=== PATIENT | male | born 2005 | race Two or more races ===

== ENCOUNTER 2024-06-25 19:43 | Emergency (ER) | payer SELFPAY | END 2024-06-25 21:13 | disposition left against medical advice (07) | LOC: ER 19:43 | DX: M79.18 Myalgia, other site (principal); Z53.21 Procedure and treatment not carried out due to patient leaving prior to being seen by health care provider ==

== ENCOUNTER 2024-08-08 05:55 | Emergency (ER) | payer MEDICAID, OTHER ==
[~2024-08-08] VITALS: Ht 182.9 cm; Wt 89.5 kg
[2024-08-08 06:30] VITALS: PULSE 74; RESP 18; O2SAT 98
--- NOTE | 2024-08-08 06:43 | ED.PDOC ---
Musculoskeletal HPI Comments 18 year old male presents to the ED with a chief complaint of LT shoulder pain onset today (08/08/24). Patient states he was getting off his truck when he slipped, fell and landed on LT shoulder, patient heard a "pop." He is currently experiencing LT shoulder pain, is not able to move LT shoulder. Denies any PMHx as well as LOC, head injury, nausea, vomiting, headache, chest pain, shortness of breath. No other symptoms or modifying factors present at this time. Chief Complaint: Upper Extremity Time Seen by MD: 06:34 Primary Care Provider: NONE Reviewed Notes: Medications, Allergies Allergies: Coded Allergies: NO KNOWN ALLERGIES (Unverified , 08/08/24) Information Source: Patient Mode of Arrival: Ambulatory Location: Left Extremity Location: Shoulder Timing: Hours Prehospital treatment: None Severity: Moderate Able to Move Extremity: No Pain: Moderate Hand Dominance: Right Mechanism: Spontaneous Circumstances: Fall Onset of Symptoms: After Trauma Symptoms: Pain DVT Risk Factors: NONE Associated signs and symptoms: Shoulder pain Past Medical History PAST MEDICAL HISTORY: Denies Surgical History: Denies all surgeries Family History Family History: Reviewed,noncontributory to illness, No family hx of Cancer, No family hx of DM, No family hx of Heart shirin, No family hx of HTN, No family hx ofKidney shirin, No family hx of Liver shirin, No family hx of Lung shirin, No family hx of Stroke Social History Smoker: Non-Smoker Alcohol: Denies ETOH Use Drugs: Denies Drug Use Lives In: Home Constitutional: denies: chills, diaphoresis, fatigue, fever, malaise, sweats, weakness, others EENTM: denies: blurred vision, double vision, ear bleeding, ear discharge, ear drainage, ear pain, ear ringing, eye pain, eye redness, hearing loss, mouth pain, mouth swelling, nasal discharge, nose bleeding, nose congestion, nose pain, photophobia, tearing, throat pain, throat swelling, voice changes, others Respiratory: denies: cough, hemoptysis, orthopnea, SOB at rest, shortness of breath, SOB with excertion, stridor, wheezing, others Cardiovascular: denies: chest pain, dizzy spells, diaphoresis, Dyspnea on exertion, edema, irregular heart beat, left arm pain, lightheadedness, palpitations, PND, syncope, others Gastrointestinal: denies: abdomen distended, abdominal pain, blood streaked bowels, constipated, diarrhea, dysphagia, difficulty swallowing, hematemesis, melena, nausea, poor appetite, poor fluid intake, rectal bleeding, rectal pain, vomiting, others Genitourinary: denies: burning, dysuria, flank pain, frequency, hematuria, incontinence, penile discharge, penile sore, pain, testicle pain, testicle swelling, urgency, others Neurological: denies: dizziness, fainting, headache, left sided numbness, left sided weakness, numbness, paresthesia, pre-existing deficit, right sided numbness, right sided weakness, seizure, speech problems, tingling, tremors, weakness, others Musculoskeletal: reports: others (LT shoulder pain); denies: back pain, gout, joint pain, joint swelling, muscle pain, muscle stiffness, neck pain Integumetry: denies: bruises, change in color, change in hair/nails, dryness, laceration, lesions, lumps, rash, wounds, others Allergic/Immunocompromised: denies: Difficulty Healing, Frequent Infections, Hives, Itching, others Hematologic/Lymphatic: denies: anemia, blood clots, easy bleeding, easy bruising, swollen glands, others Endocrine: denies: excessive hunger, excessive sweating, excessive thirst, excessive urination, flushing, intolerance to cold, intolerance to heat, unexplained weight gain, unexplained weight loss, others Psychiatric: denies: anxiety, bipolar disorder, depression, hopeless, panic disorder, schizophrenia, sleepless, suicidal, others All Other Systems: Reviewed and Negative Physical Exam General Appearance: No Apparent Distress, Normal HEENT: Normal ENT Inspection, Pharynx Normal, TMs Normal Neck: Full Range of Motion, Non-Tender, Normal, Normal Inspection Respiratory: Chest Non-Tender, Lungs Clear, No Accessory Muscle Use, No Respiratory Distress, Normal Breath Sounds Cardiovascular: No Edema, No JVD, No Murmur, No Gallop, Normal Peripheral Pulses, Regular Rate/Rhythm Breast Exam: Deferred Gastrointestinal: No Organomegaly, Non Tender, No Pulsatile Mass, Normal Bowel Sounds, Soft Genitalia: Deferred Pelvic: Deferred Rectal: Deferred Extremities: No calf tenderness, No pedal edema, Other (deformity noted to LT shoulder) Musculoskeletal : Apperance: Normal Neurologic: Alert, 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 Was a procedure done?: Yes Sedation Sedation?: Yes Informed consent obtained: Yes Sedation start time: 07:55 Sedation end time: 08:30 Sedation total time: 35 Reduction Indication: Dislocation (Left Shoulder) Sedation: Consents obtained, Sedation as ordered Intra-articular anesthetic sterling: No Post-reduction x-ray show: Reduction, Good Alignment Informed consent obtained: Yes Risks/benefits/alt described: Yes Differential Diagnosis EXT Differential Diagnosis: Sprain, Dislocation, Strain X-Ray, Labs, Meds, VS Vital Signs Date Time Temp Pulse Resp B/P (MAP) Pulse Ox O2 Delivery O2 Flow Rate FiO2 08/08/24 08:16 50 19 99 2.0 28 79 18 100 85 99 08/08/24 06:58 94 18 133/68 08/08/24 06:30 98.1 74 18 129/60 (83) 98 98.1 08/08/24 06:30 74 18 98 Room Air* 0 21 08/08/24 06:11 99.1 97 20 114/66 (82) 96 99.1 Current Medications Medications (Trade) Dose Ordered Sig/Joe Route Start Time Stop Time Status Last Admin Sodium Chloride 1,000 ml @ 1,000 mls/hr Q1H ONCE IV 08/08/24 06:45 08/08/24 07:44 DC 08/08/24 06:59 Morphine Sulfate 4 mg ONCE ONCE IV 08/08/24 06:45 08/08/24 06:46 DC 08/08/24 06:58 Ondansetron HCl (Zofran) 4 mg ONCE ONCE IV 08/08/24 06:45 08/08/24 06:46 DC 08/08/24 06:58 Ketorolac Tromethamine (Toradol Injection) 15 mg ONCE ONCE IV 08/08/24 06:45 08/08/24 06:46 DC 08/08/24 06:57 Propofol (Diprivan) 100 mg ONCE ONCE IV 08/08/24 07:30 08/08/24 07:31 DC 08/08/24 07:[address] [address] Ph: [phone] DIAGNOSTIC IMAGING Diagnostic Imaging Report : [id number] Signed PATIENT: DEVANG BECKWITH ACCT: [id number] UNIT: [id number] : 2005 LOC: ER ROOM / BED: / AGE / SEX: 18 / M ADM STATUS: REG ER SERVICE 0634 ORDERING PHYSICIAN: CECILE BATISTA MD PROCEDURE(s): LSHD2 - L SHOULDER 2+ VIEW XRAY REASON: fall ORDER NUMBER(s): [id number], ACCESSION NUMBER(s): [id number] CLINICAL INFORMATION: 18 years old, Male; fall injury. TECHNIQUE: To views of the left shoulder were obtained. COMPARISON: None FINDINGS: Anterior subcoracoid left glenohumeral dislocation. No acute fracture visualized. Mild adjacent soft tissue swelling. IMPRESSION: Anterior subcoracoid left glenohumeral dislocation. ATED BY: ARTURO FREITAS DO DICTATED DATE/TIME: 08/08/24716 SIGNED BY: ARTURO FREITAS DO SIGNED DATE/TIME: 08/08/24716 CC: [place] [id number] Ph: [phone] DIAGNOSTIC IMAGING Diagnostic Imaging Report : [id number] Signed PATIENT: DEVANG BECKWITH ACCT: [id number] UNIT: [id number] : 2005 LOC: ER ROOM / BED: / AGE / SEX: 18 / M ADM STATUS: REG ER SERVICE 0757 ORDERING PHYSICIAN: CECILE BATISTA MD PROCEDURE(s): LSHD - L SHOULDER 1V XRAY REASON: s/p reduction ORDER NUMBER(s): [id number], ACCESSION NUMBER(s): [id number] CLINICAL INDICATION: s/p reduction TECHNIQUE: 2 radiographic views of the left shoulder were obtained. Comparison: XY L SHOULDER 2+ VIEW XRAY on DOS: 08/08/24 FINDINGS/IMPRESSION: Interval reduction of previously seen shoulder dislocation with improved alignment. Possible hill-Sachs deformity. ATED BY: ZAC MONREAL MD DICTATED DATE/TIME: 08/08/24847 SIGNED BY: ZAC MONREAL MD SIGNED DATE/TIME: 08/08/24847 CC: Time of 1ST Reevaluation: 07:04 Reevaluation 1ST: Unchanged Patient Education/Counseling: Diagnosis, Treatment, Prognosis Family Education/Counseling: No Family Present Additional Information The following tests were ordered, and results were reviewed by me: XY L SHOULDER 2+ VIEW, XY L SHOULDER 1V I reviewed and agreed with the following test results read by other providers: XY L SHOULDER 2+ VIEW, XY L SHOULDER 1V I discussed treatment and results with medical personnel and: patient Comprehensive systems review obtained and negative except for what is stated in the HPI. Departure 1 Departure Time of Disposition: 08:54 (Patient had a left shoulder dislocation. Patient's shoulder was reduced. We will discharge patient home with outpatient follow up) Impression: Primary Impression: Dislocation of left shoulder joint Qualified Codes: S43.005A - Unspecified dislocation of left shoulder joint, initial encounter Disposition: 01 HOME / SELF CARE / HOMELESS Condition: Stable Referrals: AMA PEARL MD Additional Instructions: You dislocated your shoulder. It was reduced in the ER. You were placed in a sling for comfort. For pain you can take the followinam: Ibuprofen 400mg with food Noon: Acetaminophen 1000mg 4pm: Ibuprofen 400mg with food 8pm: Acetaminophen 1000mg You were referred to an orthopedic surgeon to ensure you are healing well. Please call for an appointment within one week. If your symptoms worsen or you have any other concerns then please return to the ER. Discharged With: Self Critical Care Note Critical Care Time?: No Stability Stability form required: No I personally scribed for CECILE BATISTA MD ([email or web address]) on 08/08/24 at 06:43. Electronically submitted by Cici Krasu ([email or web address]). I personally scribed for CECILE BATISTA MD ([email or web address]) on 08/08/24 at 06:50. Electronically submitted by Cici Kraus ([email or web address]). I personally scribed for CECILE BATISTA MD ([email or web address]) on 08/08/24 at 08:19. Electronically submitted by Cici Kraus ([email or web address]). I personally scribed for CECILE BATISTA MD ([email or web address]) on 08/08/24 at 08:20. Electronically submitted by Cici Kraus ([email or web address]). I personally scribed for CECILE BATISTA MD ([email or web address]) on 08/08/24 at 08:54. Electronically submitted by Cici Kraus ([email or web address]). CECILE BATISTA MD August 08, 2024 06:43
[2024-08-08] MEDS: KETOROLAC TROMETH 30 MG/ML 1ML VIAL IV ONE (06:57)
[2024-08-08] MEDS: MORPHINE SULFATE 4 MG/ML SYR/VIAL IV ONE (06:58)
[2024-08-08] MEDS: ONDANSETRON HCL 4 MG/2 ML VIAL IV ONE (06:58)
[2024-08-08] MEDS: SODIUM CHLORIDE 0.9% 1,000 ML IV ONE (06:59)
--- NOTE | 2024-08-08 07:19 | DVH ---
CLINICAL INFORMATION: 18 years old, Male; fall injury. TECHNIQUE: To views of the left shoulder were obtained. COMPARISON: None FINDINGS: Anterior subcoracoid left glenohumeral dislocation. No acute fracture visualized. Mild ad jacent soft tissue swelling. IMPRESSION: Anterior subcoracoid left glenohumeral dislocation.
[2024-08-08] MEDS: PROPOFOL 10 MG/ML 20 ML IV ONE (07:55)
[2024-08-08 08:00] VITALS: TEMP 98.3
--- NOTE | 2024-08-08 08:50 | DVH ---
CLINICAL INDICATION: s/p reduction TECHNIQUE: 2 radiographic views of the left shoulder were obtained. Comparison: XY L SHOULDER 2+ VIEW XRAY on DOS: 08/08/24 FINDINGS/IMPRESSION: Interval reduction of previously seen shoulder dislocation with improved alignment. Possible hill-Sa chs deformity.
[2024-08-08 09:02] VITALS: PULSE 56; RESP 16; O2SAT 97
[2024-08-08 10:00] VITALS: BP 103/60; PULSE 111; RESP 18; O2SAT 97
== END 2024-08-08 10:52 | disposition home or self-care (01) ==
LOC: ER 05:55
DX: S43.085A Other dislocation of left shoulder joint, initial encounter (principal); W18.39XA Other fall on same level, initial encounter; Y93.89 Activity, other specified; Y92.89 Other specified places as the place of occurrence of the external cause; Y99.8 Other external cause status
CPT/HCPCS: 23650; 73020; 73030; 96361; 96374; 96375; 99152; 99153; 99285; J1885; J2270; J2405; J2704; J7030

== ENCOUNTER 2024-08-08 11:02 | Emergency (ER) | payer MEDICAID ==
[~2024-08-08] VITALS: Ht 182.9 cm; Wt 89.5 kg
--- NOTE | 2024-08-08 11:15 | ED.PDOC ---
Musculoskeletal HPI Comments 18 year old male presents to the ED with a chief complaint of LT shoulder pain onset today (08/08/24). Patient was seen in this ED earlier today, due to shoulder dislocation. Patient was placed on a sling and was discharged from this ED today 08/08/24 at 10:37. Patient states he took off sling, tried to put his jacket on when he felt Lt shoulder "pop" again. No other symptoms or modifying factors present at this time. Time Seen by MD: 11:02 Primary Care Provider: NONE Reviewed Notes: Medications, Allergies Allergies: Coded Allergies: NO KNOWN ALLERGIES (Unverified , 08/08/24) Information Source: Patient Mode of Arrival: Ambulatory Location: Left Extremity Location: Shoulder Timing: Minutes Prehospital treatment: None Severity: Moderate Able to Move Extremity: No Pain: Moderate Mechanism: Spontaneous Symptoms: Pain DVT Risk Factors: NONE History of: Shoulder Dislocation Associated signs and symptoms: Shoulder pain Past Medical History PAST MEDICAL HISTORY: Denies Surgical History: Denies all surgeries Family History Family History: Reviewed,noncontributory to illness, No family hx of Cancer, No family hx of DM, No family hx of Heart shirin, No family hx of HTN, No family hx ofKidney shirin, No family hx of Liver shirin, No family hx of Lung shirin, No family hx of Stroke Social History Smoker: Non-Smoker Alcohol: Denies ETOH Use Drugs: Denies Drug Use Lives In: Home Constitutional: denies: chills, diaphoresis, fatigue, fever, malaise, sweats, weakness, others EENTM: denies: blurred vision, double vision, ear bleeding, ear discharge, ear drainage, ear pain, ear ringing, eye pain, eye redness, hearing loss, mouth pain, mouth swelling, nasal discharge, nose bleeding, nose congestion, nose pain, photophobia, tearing, throat pain, throat swelling, voice changes, others Respiratory: denies: cough, hemoptysis, orthopnea, SOB at rest, shortness of breath, SOB with excertion, stridor, wheezing, others Cardiovascular: denies: chest pain, dizzy spells, diaphoresis, Dyspnea on exertion, edema, irregular heart beat, left arm pain, lightheadedness, palpitations, PND, syncope, others Gastrointestinal: denies: abdomen distended, abdominal pain, blood streaked bowels, constipated, diarrhea, dysphagia, difficulty swallowing, hematemesis, melena, nausea, poor appetite, poor fluid intake, rectal bleeding, rectal pain, vomiting, others Genitourinary: denies: burning, dysuria, flank pain, frequency, hematuria, incontinence, penile discharge, penile sore, pain, testicle pain, testicle swelling, urgency, others Neurological: denies: dizziness, fainting, headache, left sided numbness, left sided weakness, numbness, paresthesia, pre-existing deficit, right sided numbness, right sided weakness, seizure, speech problems, tingling, tremors, weakness, others Musculoskeletal: reports: others (LT shoulder pain); denies: back pain, gout, joint pain, joint swelling, muscle pain, muscle stiffness, neck pain Integumetry: denies: bruises, change in color, change in hair/nails, dryness, laceration, lesions, lumps, rash, wounds, others Allergic/Immunocompromised: denies: Difficulty Healing, Frequent Infections, Hives, Itching, others Hematologic/Lymphatic: denies: anemia, blood clots, easy bleeding, easy bruising, swollen glands, others Endocrine: denies: excessive hunger, excessive sweating, excessive thirst, excessive urination, flushing, intolerance to cold, intolerance to heat, unexplained weight gain, unexplained weight loss, others Psychiatric: denies: anxiety, bipolar disorder, depression, hopeless, panic disorder, schizophrenia, sleepless, suicidal, others All Other Systems: Reviewed and Negative Physical Exam General Appearance: No Apparent Distress, Normal HEENT: Normal ENT Inspection, Pharynx Normal, TMs Normal Neck: Full Range of Motion, Non-Tender, Normal, Normal Inspection Respiratory: Chest Non-Tender, Lungs Clear, No Accessory Muscle Use, No Respiratory Distress, Normal Breath Sounds Cardiovascular: No Edema, No JVD, No Murmur, No Gallop, Normal Peripheral Pulses, Regular Rate/Rhythm Breast Exam: Deferred Gastrointestinal: No Organomegaly, Non Tender, No Pulsatile Mass, Normal Bowel Sounds, Soft Genitalia: Deferred Pelvic: Deferred Rectal: Deferred Extremities: No calf tenderness, No pedal edema, Other (deformity to LT shoulder ) Musculoskeletal : Apperance: Normal Neurologic: Alert, 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 Was a procedure done?: Yes Sedation Sedation?: Yes Informed consent obtained: Yes Sedation start time: 13:09 Sedation end time: 13:40 Sedation total time: 31min Reduction Indication: Dislocation (left shoulder dislocation) Sedation: Consents obtained Intra-articular anesthetic sterling: No Post-reduction x-ray show: Reduction, Good Alignment Informed consent obtained: Yes Risks/benefits/alt described: Yes Differential Diagnosis EXT Differential Diagnosis: Fracture, Sprain, Dislocation X-Ray, Labs, Meds, VS Vital Signs Date Time Temp Pulse Resp B/P (MAP) Pulse Ox O2 Delivery O2 Flow Rate FiO2 08/08/24 13:08 77 16 137/81 (99) 98 08/08/24 12:51 52 16 126/82 08/08/24 12:00 97.7 50 17 126/82 (97) 97.7 08/08/24 11:30 50 20 96 Room Air* 0 21 08/08/24 11:30 51 14 129/79 (96) 96 08/08/24 11:11 98.0 70 17 119/72 (88) 100 98.0 Current Medications Medications (Trade) Dose Ordered Sig/Joe Route Start Time Stop Time Status Last Admin Sodium Chloride 1,000 ml @ 1,000 mls/hr Q1H ONCE IV 08/08/24 12:15 08/08/24 13:14 DC 08/08/24 12:51 Ondansetron HCl (Zofran) 4 mg ONCE ONCE IV 08/08/24 12:15 08/08/24 12:41 DC 08/08/24 12:51 Morphine Sulfate 4 mg ONCE ONCE IV 08/08/24 12:15 08/08/24 12:41 DC 08/08/24 12:51 Propofol (Diprivan) 200 mg ONCE ONCE IV 08/08/24 12:15 08/08/24 12:41 DC 08/08/24 13:[address] [address] Ph: [phone] DIAGNOSTIC IMAGING Diagnostic Imaging Report : [id number] Signed PATIENT: DEVANG BECKWITH ACCT: [id number] UNIT: [id number] : 2005 LOC: ER ROOM / BED: / AGE / SEX: 18 / M ADM STATUS: REG ER SERVICE 1104 ORDERING PHYSICIAN: CECILE BATISTA MD PROCEDURE(s): LSHD2 - L SHOULDER 2+ VIEW XRAY REASON: patient removed sling and raised arm and redislocated should ORDER NUMBER(s): [id number], ACCESSION NUMBER(s): [id number] XY L SHOULDER 2+ VIEW XRAY INDICATION: patient removed sling and raised arm and redislocated should TECHNICAL DATA: 2 views were obtained of the left shoulder. COMPARISON: XY L SHOULDER 1V XRAY on DOS: 08/08/24, XY L SHOULDER 2+ VIEW XRAY on DOS: 08/08/24 FINDINGS: Anterior/inferior left shoulder dislocation. The acromioclavicular joint appears normal. The humeral head is not high riding. Adjacent soft tissues are within normal limits. IMPRESSION: Anterior/inferior left shoulder dislocation. ATED BY: JOSELUIS SAM MD DICTATED DATE/TIME: 08/08/24 115 SIGNED BY: JOSELUIS SAM MD SIGNED DATE/TIME: 08/08/24 115 CC: [place] [id number] Ph: [phone] DIAGNOSTIC IMAGING Diagnostic Imaging Report : [id number] Signed PATIENT: DEVANG BECKWITH ACCT: [id number] UNIT: [id number] : 2005 LOC: ER ROOM / BED: / AGE / SEX: 18 / M ADM STATUS: REG ER SERVICE 1310 ORDERING PHYSICIAN: CECILE BATISTA MD PROCEDURE(s): LSHD - L SHOULDER 1V XRAY REASON: s/p reduction ORDER NUMBER(s): [id number], ACCESSION NUMBER(s): [id number] CLINICAL INDICATION: s/p reduction TECHNIQUE: XY L SHOULDER 1V XRAY Comparison: XY L SHOULDER 2+ VIEW XRAY on DOS: 08/08/24, XY L SHOULDER 1V XRAY on DOS: 08/08/24, XY L SHOULDER 2+ VIEW XRAY on DOS: 08/08/24 FINDINGS/IMPRESSION: : No joint dislocation. Subcentimeter ossific density at the inferior margin of the glenoid is suspicious for bony Bankart avulsion fracture. ATED BY: YOVANY REICH MD DICTATED DATE/TIME: 08/08/24 133 SIGNED BY: YOVANY REICH MD SIGNED DATE/TIME: 08/08/24 133 CC: Time of 1ST Reevaluation: 11:32 Reevaluation 1ST: Unchanged Patient Education/Counseling: Diagnosis, Treatment, Prognosis Family Education/Counseling: No Family Present Additional Information The following tests were ordered, and results were reviewed by me: XY L SHOULDER 2+ VIEW, XY SHOULDER 1 VIEW I reviewed and agreed with the following test results read by other providers: XY L SHOULDER 2+ VIEW, XY SHOULDER 1 VIEW I discussed treatment and results with medical personnel and: patient Comprehensive systems review obtained and negative except for what is stated in the HPI. Departure 1 Departure Time of Disposition: 13:50 (Patient's shoulder was reduced again. Patient was placed in a sling counseled on the importance of keeping his arm where it is. Patient will follow up with outpatient follow up) Impression: Primary Impression: Dislocation of left shoulder joint Qualified Codes: S43.005A - Unspecified dislocation of left shoulder joint, initial encounter Disposition: HOME / SELF CARE / HOMELESS Condition: Stable Referrals: AMA PEARL MD Additional Instructions: You dislocated your shoulder. It was reduced in the ER. You were placed in a sling for comfort. For pain you can take the followinam: Ibuprofen 400mg with food Noon: Acetaminophen 1000mg 4pm: Ibuprofen 400mg with food 8pm: Acetaminophen 1000mg You were referred to an orthopedic surgeon to ensure you are healing well. Please call for an appointment within one week. If your symptoms worsen or you have any other concerns then please return to the ER. Discharged With: Self Critical Care Note Critical Care Time?: No Stability Stability form required: No I personally scribed for CECILE BATISTA MD ([email or web address]) on 08/08/24 at 11:15. Electronically submitted by Cici Kraus ([email or web address]). I personally scribed for CECILE BATISTA MD ([email or web address]) on 08/08/24 at 11:20. Electronically submitted by Cici Kraus ([email or web address]). I personally scribed for CECILE BATISTA MD ([facility]) on 08/08/24 at 12:09. Electronically submitted by Cici Kraus ([email or web address]). I personally scribed for CECILE BATISTA MD ([email or web address]) on 08/08/24 at 13:45. Electronically submitted by Cici Kraus ([email or web address]). CECILE BATISTA MD August 08, 2024 11:15
[2024-08-08 11:30] VITALS: PULSE 50; RESP 20; O2SAT 96
[2024-08-08 12:00] VITALS: TEMP 97.7
--- NOTE | 2024-08-08 12:02 | DVH ---
XY L SHOULDER 2+ VIEW XRAY INDICATION: patient removed sling and raised arm and redislocated should TECHNICAL DATA: 2 views were obtained of the left shoulder. COMPARISON: XY L SHOULDER 1V XRAY on DOS: 08/08/24, XY L SHOULDER 2+ VIEW XRAY on DOS: 08/08/24 FINDINGS: Anterior/inferior left shoulder dislocation. The acromioclavicular joint appears normal. The humeral head is not high riding. Adjacent soft tissues are within normal limits. IMPRESSION: Anterior/inferior left shoulder dislocation.
[2024-08-08] MEDS: MORPHINE SULFATE 4 MG/ML SYR/VIAL IV ONE (12:51)
[2024-08-08] MEDS: SODIUM CHLORIDE 0.9% 1,000 ML IV ONE (12:51)
[2024-08-08] MEDS: ONDANSETRON HCL 4 MG/2 ML VIAL IV ONE (12:51)
[2024-08-08] MEDS: PROPOFOL 10 MG/ML 20 ML IV ONE (13:13)
--- NOTE | 2024-08-08 13:42 | DVH ---
CLINICAL INDICATION: s/p reduction TECHNIQUE: XY L SHOULDER 1V XRAY Comparison: XY L SHOULDER 2+ VIEW XRAY on DOS: 08/08/24, XY L SHOULDER 1V XRAY on DOS: 08/08/24, XY L MYRNA ULDER 2+ VIEW XRAY on DOS: 08/08/24 FINDINGS/IMPRESSION: : No joint dislocation. Subcentimeter ossific density at the inferior margin of the glenoid is suspicious for bony Bankart av ulsion fracture.
[2024-08-08 14:00] VITALS: BP 106/53; PULSE 46; RESP 14; O2SAT 92
== END 2024-08-08 15:32 | disposition home or self-care (01) ==
LOC: ER 11:02
DX: S43.035A Inferior dislocation of left humerus, initial encounter (principal); X58.XXXA Exposure to other specified factors, initial encounter; Y93.89 Activity, other specified; Y92.89 Other specified places as the place of occurrence of the external cause; Y99.8 Other external cause status
CPT/HCPCS: 23650; 73020; 73030; 96361; 96374; 96375; 99152; 99153; 99285; J2270; J2405; J2704; J7030